=== PATIENT | female | born 1950 | race Caucasian/White ===

== ENCOUNTER 2025-03-10 11:07 | Inpatient (IN) | payer MEDICARE, OTHER ==
[~2025-03-10] VITALS: Ht 162.6 cm; Wt 68.1 kg
[2025-03-10 14:00] VITALS: O2SAT 98
[2025-03-10 15:04] VITALS: BP 133/84; PULSE 85; RESP 19; TEMP 98; O2SAT 98
[2025-03-10] MEDS ORDERED: PSYLLIUM SEED ORANGE SF 5.8 GM/PACKET PO PRN (15:15)
[2025-03-10] MEDS: CYCLOBENZAPRINE HCL 10 MG TABLET PO SCH (17:22)
[2025-03-10 20:00] VITALS: BP 126/83; PULSE 88; RESP 19; TEMP 97.7; O2SAT 97
[2025-03-10] MEDS: SENNOSIDES/DOCUSATE SODIUM 8.6-50 MG TABLET PO SCH (21:00)
[2025-03-10] MEDS: NORTRIPTYLINE HCL 10 MG CAPSULE PO SCH (21:12)
[2025-03-10] MEDS: ETHYL ALCOHOL 62% ANTISEPTIC NASAL SANITIZER 0.6 ML AMPUL NASAL SCH (21:24)
[2025-03-11] MEDS ORDERED: NITROGLYCERIN 0.4 MG SUBLINGUAL TABLET #25 SL PRN (04:15)
[2025-03-11] MEDS: ALENDRONATE SODIUM 70 MG TABLET PO SCH (06:17)
[2025-03-11] MEDS: PANTOPRAZOLE SODIUM 40 MG DR TABLET PO SCH (06:54)
[2025-03-11 08:00] VITALS: BP 117/73; PULSE 70; RESP 18; TEMP 97.9; O2SAT 97
[2025-03-11] MEDS: LIDOCAINE 5% TRANSDERMAL PATCH TD SCH (08:12)
[2025-03-11] MEDS: POLYETHYLENE GLYCOL 3350 17 GM PACKET PO SCH (08:12)
[2025-03-11] MEDS: CLOPIDOGREL BISULFATE 75 MG TABLET PO SCH (08:13)
[2025-03-11] MEDS: ASPIRIN 81 MG CHEWABLE TABLET PO SCH (08:13)
[2025-03-11] MEDS: TAMSULOSIN HCL 0.4 MG CAPSULE PO SCH (08:14)
[2025-03-11] MEDS: LOSARTAN POTASSIUM 25 MG TABLET PO SCH (08:14)
[2025-03-11] MEDS: MAGNESIUM OXIDE 400 MG TABLET PO SCH (08:14)
[2025-03-11] MEDS: ACETAMINOPHEN 325 MG TABLET PO PRN (08:49)
[2025-03-11] MEDS ORDERED: PANTOPRAZOLE SODIUM 40 MG/VIAL IVP SCH (09:00)
[2025-03-11] MEDS ORDERED: LIDOCAINE 4% 50 ML SOLUTION TP SCH (09:00)
[2025-03-11 09:41] LABS: PLATELET COUNT (AUTO) 294 K/uL (150-450); RED BLOOD CELL COUNT(AUTO) 5.12 MIL/uL (4.00-5.20); RED CELL DISTRIBUTION WIDTH 13.8 % (11.5-14.5); WHITE BLOOD COUNT (AUTO) 6.3 K/uL (4.5-11.0)
[2025-03-11 10:00] VITALS: BP 120/84; PULSE 72; RESP 17; O2SAT 98
[2025-03-11 10:04] LABS: ASPARTATE AMINOTRANSFERASE 51 U/L (15-37); CALCIUM, TOTAL 9.6 mg/dL (8.8-10.5); CREATININE 0.87 mg/dL (0.60-1.30); GLOMERULAR FILTR. RATE CALC > 60 mL/min (>60); GLUCOSE,RANDOM 89 mg/dL (70-110); SODIUM SERUM 137 mmol/L (136-145); TOTAL PROTEIN, SERUM 8.5 g/dL (6.4-8.2); UREA NITROGEN, BLOOD 18 mg/dL (7-18)
[2025-03-11] MEDS: HEPARIN SODIUM,PORCINE 5,000 UNITS/ML VIAL SQ SCH (15:43)
[2025-03-11 20:00] VITALS: O2SAT 97
[2025-03-11] MEDS ORDERED: SENNOSIDES 8.6 MG TABLET PO PRN (20:45)
[2025-03-11 21:00] VITALS: BP 113/66; PULSE 82; RESP 18; TEMP 98.2; O2SAT 97
[2025-03-11] MEDS: DOCUSATE SODIUM 250 MG CAPSULE PO SCH (21:04)
[2025-03-11] MEDS: SENNOSIDES 8.6 MG TABLET PO SCH (21:05)
[2025-03-11] MEDS: -LIDODERM PATCH NOTE- MISC SCH (21:06)
[2025-03-11] MEDS: MELATONIN 5 MG TABLET PO PRN (23:41)
[2025-03-12 09:00] VITALS: BP 120/66; PULSE 78; RESP 18; TEMP 98.1; O2SAT 96
[2025-03-12] MEDS: DICLOFENAC SODIUM 1% 100 GM GEL [2GM] TP SCH (11:32)
[2025-03-12 20:00] VITALS: BP 133/79; PULSE 88; RESP 16; TEMP 98.4; O2SAT 95
[2025-03-13 08:00] VITALS: BP 120/63; PULSE 72; RESP 18; TEMP 97.9; O2SAT 95
[2025-03-13 08:50] VITALS: BP 123/77; PULSE 82; RESP 18
[2025-03-13 19:39] VITALS: BP 140/75; PULSE 80; RESP 18; TEMP 98.1; O2SAT 98
[2025-03-13 20:45] VITALS: O2SAT 98
[2025-03-14 08:00] VITALS: BP 133/63; PULSE 70; RESP 18; TEMP 98.1; O2SAT 100
[2025-03-14 20:00] VITALS: BP 113/58; PULSE 78; RESP 18; TEMP 98.1; O2SAT 95
[2025-03-15 08:00] VITALS: BP 130/80; PULSE 72; RESP 18; TEMP 97.9; O2SAT 97
[2025-03-15 20:05] VITALS: BP 124/78; PULSE 83; RESP 18; TEMP 97.9; O2SAT 99
[2025-03-15 22:06] VITALS: O2SAT 99
[2025-03-16 08:27] VITALS: BP 129/82; PULSE 77; RESP 18; TEMP 97.7; O2SAT 97
[2025-03-16] MEDS: CYCLOBENZAPRINE HCL 10 MG TABLET PO PRN (08:46)
[2025-03-16 20:03] VITALS: BP 120/68; PULSE 74; RESP 18; TEMP 97.9; O2SAT 98
[2025-03-16] MEDS: BACLOFEN 10 MG TABLET PO SCH (20:39)
[2025-03-16 22:30] VITALS: O2SAT 98
[2025-03-17 08:00] VITALS: BP 125/66; PULSE 68; RESP 18; TEMP 98.1; O2SAT 96
[2025-03-17 09:30] VITALS: BP 154/74; PULSE 92; RESP 18; TEMP 98.2; O2SAT 98
[2025-03-17 10:05] LABS: PLATELET COUNT (AUTO) 258 K/uL (150-450); RED BLOOD CELL COUNT(AUTO) 4.59 MIL/uL (4.00-5.20); RED CELL DISTRIBUTION WIDTH 13.5 % (11.5-14.5); WHITE BLOOD COUNT (AUTO) 4.6 K/uL (4.5-11.0)
[2025-03-17 10:15] VITALS: BP 107/64; PULSE 71; RESP 18; TEMP 97.5; O2SAT 100
[2025-03-17 10:36] LABS: GLUCOMETER DEV NAME(LOC) 2WR.2C; GLUCOSE,POINT OF CARE 143 MG/DL (70-110)
[2025-03-17 20:00] VITALS: BP 122/79; PULSE 89; RESP 18; TEMP 98.4; O2SAT 98
[2025-03-18 02:15] VITALS: BP 137/78; PULSE 74
[2025-03-18 08:00] VITALS: BP 120/70; PULSE 78; RESP 18; TEMP 97.5; O2SAT 96
[2025-03-18 20:00] VITALS: BP 133/67; PULSE 86; RESP 18; TEMP 97.9; O2SAT 96
[2025-03-19 08:00] VITALS: BP 129/83; PULSE 79; RESP 18; TEMP 98.2; O2SAT 98
[2025-03-19 20:00] VITALS: BP 107/61; PULSE 76; RESP 17; TEMP 98.2; O2SAT 97
[2025-03-19] MEDS: BACLOFEN 10 MG TABLET PO SCH (20:01)
[2025-03-19 23:30] VITALS: BP 134/72; PULSE 73; RESP 18; TEMP 98.1; O2SAT 97
[2025-03-20 07:51] VITALS: BP 124/71; PULSE 68; RESP 16; TEMP 97.9; O2SAT 97
[2025-03-20 20:02] VITALS: BP 117/64; PULSE 78; RESP 17; TEMP 98.2; O2SAT 96
[2025-03-21 08:00] VITALS: BP 119/68; PULSE 65; RESP 17; TEMP 97.9; O2SAT 95
[2025-03-21 17:00] VITALS: BP 144/91; PULSE 90; RESP 18; TEMP 98.1; O2SAT 96
== END 2025-03-21 17:10 | DRG 57 ==
LOC: 2WR 13:47
PROVIDERS: ADMIT Physical Medicine & Rehabilitation; ATTEND Physical Medicine & Rehabilitation
DX: I69.351 Hemiplegia and hemiparesis following cerebral infarction affecting right dominant side (principal); R62.7 Adult failure to thrive; R13.10 Dysphagia, unspecified; I12.9 Hypertensive chronic kidney disease with stage 1 through stage 4 chronic kidney disease, or unspecified chronic kidney disease; G25.81 Restless legs syndrome; E78.5 Hyperlipidemia, unspecified; E87.6 Hypokalemia; K21.9 Gastro-esophageal reflux disease without esophagitis; Z74.09 Other reduced mobility; K59.00 Constipation, unspecified; I25.10 Atherosclerotic heart disease of native coronary artery without angina pectoris; G89.29 Other chronic pain; M54.50 Low back pain, unspecified; R47.1 Dysarthria and anarthria; F51.04 Psychophysiologic insomnia; R13.11 Dysphagia, oral phase; R41.89 Other symptoms and signs involving cognitive functions and awareness; M79.606 Pain in leg, unspecified; Z79.82 Long term (current) use of aspirin; Z88.5 Allergy status to narcotic agent; Z68.25 Body mass index [BMI] 25.0-25.9, adult; N18.2 Chronic kidney disease, stage 2 (mild)
CPT/HCPCS: 70551; 80053; 82962; 85025; 85610; 87081; 92507; 92523; 92610; 97112; 97116; 97140; 97163; 97167; 97530; 97535; 99366; J1644